=== PATIENT | male | born 1940 | race Caucasian/White ===

== ENCOUNTER 2018-09-29 08:39 | Emergency (ER) | payer OTHER ==
[2018-09-29 08:53] VITALS: BP 167/108
== END 2018-09-29 09:03 | disposition left against medical advice (07) ==
DX: Z53.21 Procedure and treatment not carried out due to patient leaving prior to being seen by health care provider (principal)

== ENCOUNTER → 2018-10-28 | Outpatient (CLI) | payer OTHER | LOC: FIMAGING 12:12 | PROVIDERS: ATTEND Anesthesiology Pain Medicine | DX: M50.322 Other cervical disc degeneration at C5-C6 level (principal); M50.323 Other cervical disc degeneration at C6-C7 level ==